=== PATIENT | female | born 1935 | race African-American/Black ===

== ENCOUNTER 2018-10-19 13:25 | Emergency (ER) | payer OTHER ==
[2018-10-19 14:39] LABS: Absolute Lymphocytes (CBC) 2.3 K/uL (0.7-4.9); Absolute Monocytes 0.7 K/uL (0.1-1.3); Absolute Neutrophil 3.7 K/uL (1.8-8.0); Eosinophils % 2.8 % (0-4.4); Hematocrit 40.7 % (36.0-45.0); MCH 27.7 pg (27.0-35.0); MCV 84.3 fL (80-100); MPV 9.5 fL (7.6-11.3); Monocytes % 9.7 % (3.3-12.3); RBC Red Blood Cell Count 4.83 M/uL (3.86-4.86)
[2018-10-19 15:00] LABS: Albumin 4.1 g/dL (3.4-5.0); Bilirubin Direct 0.2 mg/dL (0-0.2); Bilirubin Total 0.5 mg/dL (0.2-1.0); Potassium 3.8 mmol/L (3.5-5.1); Protein, Total 7.5 g/dL (6.4-8.2)
--- NOTE | 2018-10-19 15:05 | RAD REPORT ---
EXAM DESCRIPTION: CT - Chest For Pe Angio - 10/19/2018 2:49 pm CLINICAL HISTORY: Shortness of breath COMPARISON: None. TECHNIQUE: Dynamically enhanced axial 3 mm thick images of the chest were obtained during administra tion of <100> mL Isovue 370 IV contrast. Coronal and oblique reconstruction images were generated and reviewed. Exam utilizes a protocol for optimal evaluation of pulmonary arterial tree. Maximum intensity projections 3D imaging was utilized All CT scans are performed using dose optimization technique as appropriate and may include automated exposure control or mA/KV adjustment according to patient size. FINDINGS: A pulmonary embolus is not seen. A thoracic aortic aneurysm is not noted. It is tortuous/ectatic. The heart is enlarged A pleural effusion is not seen. A pericardial effusion is not seen. A lung consolidation is not present. IMPRESSION: Negative for a pulmonary embolism.
[2018-10-19 15:11] LABS: Magnesium 1.3 mg/dL (1.8-2.4)
[2018-10-19] MEDS ORDERED: Magnesium Sulfate 2gm IVPB 2 G/50 ML BAG IV ONE (15:31)
[2018-10-19 16:25] LABS: Urine Glucose NEGATIVE (NEG)
[2018-10-19 16:26] LABS: Urine Blood TRACE (NEG); Urine Protein NEGATIVE (NEG)
--- NOTE | 2018-10-19 17:02 | ER ---
Nurse's Notes [facility] Name: Beth Thrasher Age: 83 yrs Sex: Female : 1935 Arrival Date: 10/19/2018 Time: 13:31 Bed 18 Private MD: Ru Gonzalez V Diagnosis: Dyspnea, unspecified Presentation: 10/19 13:32 Presenting complaint: Patient states: "My doctor told me to come over here to get a CT aj1 scan done today. He said he saw something in my blood and that I needed to come to the ER for a CT scan". Transition of care: patient was not received from another setting of care. Onset of symptoms was October 19, 2018. Risk Assessment: Do you want to hurt yourself or someone else? Patient reports no desire to harm self or others. Initial Sepsis Screen: Does the patient meet any 2 criteria? No. Patient's initial sepsis screen is negative. Does the patient have a suspected source of infection? No. Patient's initial sepsis screen is negative. Care prior to arrival: None. 13:32 Method Of Arrival: Ambulatory [facility] 13:32 Acuity: LIEN 3 aj1 Triage Assessment: 13:37 General: Appears in no apparent distress. comfortable, Behavior is calm, cooperative, aj1 appropriate for age. Pain: Denies pain. Neuro: Level of Consciousness is awake, alert, obeys commands. Cardiovascular: Patient's skin is warm and dry. Respiratory: Airway is patent Respiratory effort is even, unlabored, Respiratory pattern is regular, symmetrical. Historical: - Allergies: 13:37 Tramadol HCl; aj1 - PMHx: 13:37 Hypertension; CHF; Rheumatoid Arthritis; aj1 - Immunization history:: Flu vaccine is not up to date. - Social history:: Smoking status: Patient/guardian denies using tobacco. - Ebola Screening: : Patient denies travel to an Ebola-affected area in the 21 days before illness onset. Screenin:49 Abuse screen: Denies threats or abuse. Nutritional screening: No deficits noted. em Tuberculosis screening: No symptoms or risk factors identified. Fall Risk None identified. Assessment: 13:58 General: Appears in no apparent distress. comfortable, Behavior is calm, cooperative. em Pain: Denies pain. Neuro: Level of Consciousness is awake, alert, obeys commands, Oriented to person, place, time, situation. Cardiovascular: Reports shortness of breath, Denies chest pain, Patient's skin is warm and dry. Respiratory: Airway is patent Respiratory effort is even, unlabored, Respiratory pattern is regular, symmetrical, Breath sounds are clear bilaterally. GI: Abdomen is flat, Abd is soft and non tender X 4 quads. : No signs and/or symptoms were reported regarding the genitourinary system. EENT: No signs and/or symptoms were reported regarding the EENT system. Derm: Skin is intact, is thin, Skin is pink, warm \\T\\ dry. Musculoskeletal: Capillary refill < 3 seconds, Range of motion: intact in all extremities. 15:11 Reassessment: critical lab- magnesium 1.3, provider notified. em 15:48 Reassessment: Patient appears in no apparent distress at this time. Patient and/or em family updated on plan of care and expected duration. Pain level reassessed. Patient is alert, oriented x 3, equal unlabored respirations, skin warm/dry/pink. pending completion of magnesium, given sandwich and snacks. 16:50 Reassessment: Patient appears in no apparent distress at this time. Patient and/or em family updated on plan of care and expected duration. Pain level reassessed. Patient is alert, oriented x 3, equal unlabored respirations, skin warm/dry/pink. Patient denies pain at this time. Patient states feeling better. Vital Signs: 13:37 BP 136 / 88; Pulse 81; Resp 18; Temp 97.0; Pulse Ox 96% on R/A; Height 5 ft. 3 in. aj1 (160.02 cm) (R); Pain 0/10; 14:00 BP 132 / 80; Pulse 80; Resp 16; Pulse Ox 99% on R/A; Pain 0/10; em 15:30 BP 138 / 82; Pulse 83; Resp 18; Pulse Ox 100% on R/A; em 16:50 BP 130 / 86; Pulse 79; Resp 16; Pulse Ox 97% on R/A; em ED Course: 13:31 Patient arrived in ED. sb2 13:31 Ru Gonzalez MD is Private Physician. sb2 13:36 Triage completed. aj1 13:37 Arm band placed on Patient placed in an exam room. aj1 13:41 Adan Chou MD is Attending Physician. gs 13:41 Leonard De Oliveira LVN is Primary Nurse. em 13:45 Urine collected: clean catch specimen, clear, sunshine colored, Amount Voided: 80mL. jp3 13:49 Patient has correct armband on for positive identification. Placed in gown. Bed in low em position. Call light in reach. Adult w/ patient. 14:00 Initial lab(s) drawn, by me, sent to lab. Inserted saline lock: 20 gauge in right em antecubital area, using aseptic technique. Blood collected. 14:49 CT Chest For PE Angio In Process Unspecified. EDMS 14:52 Urine Dipstick--Ancillary (enter results) Sent. jp3 16:43 EKG done, by ED staff, reviewed by Adan Chou MD. jp3 17:00 Ru Gonzalez MD is Referral Physician. gs 17:19 No provider procedures requiring assistance completed. IV discontinued, intact, em bleeding controlled, No redness/swelling at site. Pressure dressing applied. Administered Medications: 15:33 Drug: Magnesium Sulfate 2 grams Route: IVPB; Infused Over: 2 hrs; Site: right em antecubital; 17:18 Follow up: Response: No adverse reaction; IV Status: Completed infusion em Outcome: 17:01 Discharge ordered by . gs 17:19 Discharged to home ambulatory, with family. em 17:19 Condition: good 17:19 Discharge instructions given to patient, family, Instructed on discharge instructions, follow up and referral plans. Demonstrated understanding of instructions, follow-up care. 17:25 Patient left the ED. em Signatures: Dispatcher [employer] Gloria Huitron RN RN aj1 Leonard De Oliveira LVN LVN em Adan Chou MD MD Shawna Roper 2 Selvin Christy jp3
--- NOTE | 2018-10-19 17:02 | EDPHYS ---
Physician Documentation [facility] Name: Beth Thrasher Age: 83 yrs Sex: Female : 1935 Arrival Date: 10/19/2018 Time: 13:31 Bed 18 Private MD: Ru Gonzalez V ED Physician Adan Chou HPI: 10/19 18:39 This 83 yrs old Black Female presents to ER via Ambulatory with complaints of Abnormal gs Lab Results. 18:39 The patient has shortness of breath with light activity. Onset: The symptoms/episode gs began/occurred 1 week(s) ago. Duration: The symptoms are intermittent, with no pattern. The patient's shortness of breath is aggravated by exertion. Associated signs and symptoms: Pertinent negatives: chest pain, non-productive cough, productive cough, diaphoresis, fever. Severity of symptoms: At their worst the symptoms were moderate in the emergency department the symptoms have improved moderately. The patient has experienced similar episodes in the past, several times. The patient has been recently seen by a physician: the patient's primary care provider, WENT UP ON [facility] BETTER GOT POSITIVE D-DIMER WANT CT CHEST. Historical: - Allergies: 13:37 Tramadol HCl; aj1 - PMHx: 13:37 Hypertension; CHF; Rheumatoid Arthritis; aj1 - Immunization history:: Flu vaccine is not up to date. - Social history:: Smoking status: Patient/guardian denies using tobacco. - Ebola Screening: : Patient denies travel to an Ebola-affected area in the 21 days before illness onset. ROS: 18:39 All other systems are negative. gs Exam: 18:39 Head/Face: Normocephalic, atraumatic. Eyes: Pupils equal round and reactive to light, gs extra-ocular motions intact. Lids and lashes normal. Conjunctiva and sclera are non-icteric and not injected. Cornea within normal limits. Periorbital areas with no swelling, redness, or edema. ENT: Nares patent. No nasal discharge, no septal abnormalities noted. Tympanic membranes are normal and external auditory canals are clear. Oropharynx with no redness, swelling, or masses, exudates, or evidence of obstruction, uvula midline. Mucous membranes moist. Neck: Trachea midline, no thyromegaly or masses palpated, and no cervical lymphadenopathy. Supple, full range of motion without nuchal rigidity, or vertebral point tenderness. No Meningismus. Chest/axilla: Normal chest wall appearance and motion. Nontender with no deformity. No lesions are appreciated. Cardiovascular: Regular rate and rhythm with a normal S1 and S2. No gallops, murmurs, or rubs. Normal PMI, no JVD. No pulse deficits. Respiratory: Lungs have equal breath sounds bilaterally, clear to auscultation and percussion. No rales, rhonchi or wheezes noted. No increased work of breathing, no retractions or nasal flaring. Abdomen/GI: Soft, non-tender, with normal bowel sounds. No distension or tympany. No guarding or rebound. No evidence of tenderness throughout. Back: No spinal tenderness. No costovertebral tenderness. Full range of motion. Skin: Warm, dry with normal turgor. Normal color with no rashes, no lesions, and no evidence of cellulitis. MS/ Extremity: Pulses equal, no cyanosis. Neurovascular intact. Full, normal range of motion. Neuro: Awake and alert, GCS 15, oriented to person, place, time, and situation. Cranial nerves II-XII grossly intact. Motor strength 5/5 in all extremities. Sensory grossly intact. Cerebellar exam normal. Normal gait. 18:39 Constitutional: The patient appears alert, awake. 18:39 ECG was reviewed by the Attending Physician. Vital Signs: 13:37 BP 136 / 88; Pulse 81; Resp 18; Temp 97.0; Pulse Ox 96% on R/A; Height 5 ft. 3 in. aj1 (160.02 cm) (R); Pain 0/10; 14:00 BP 132 / 80; Pulse 80; Resp 16; Pulse Ox 99% on R/A; Pain 0/10; em 15:30 BP 138 / 82; Pulse 83; Resp 18; Pulse Ox 100% on R/A; em 16:50 BP 130 / 86; Pulse 79; Resp 16; Pulse Ox 97% on R/A; em MDM: 13:49 Patient medically screened. gs 18:39 Differential diagnosis: CHF exacerbation, Myocardial Infarction Pulmonary Embolism. gs Data reviewed: vital signs, nurses notes. Data reviewed: lab test result(s), EKG, radiologic studies. Counseling: I had a detailed discussion with the patient and/or guardian regarding: the historical points, exam findings, and any diagnostic results supporting the discharge/admit diagnosis, lab results, radiology results, the need for outpatient follow up. Response to treatment: the patient's symptoms have resolved after treatment, and as a result, I will discharge patient. 10/19 14:08 Order name: Basic Metabolic Panel; Complete Time: 16:16 gs 10/19 14:08 Order name: CBC with Diff; Complete Time: 15:06 gs 10/19 14:08 Order name: LFT's; Complete Time: 16:16 gs 10/19 14:08 Order name: Magnesium; Complete Time: 16:16 gs 10/19 14:08 Order name: NT PRO-BNP; Complete Time: 16:16 gs 10/19 14:33 Order name: Urine Dipstick--Ancillary (enter results); Complete Time: 16:57 lt1 10/19 14:08 Order name: Cardiac monitoring; Complete Time: 14:53 gs 10/19 14:08 Order name: IV Saline Lock; Complete Time: 14:53 gs 10/19 14:08 Order name: Labs collected and sent; Complete Time: 14:53 gs 10/19 14:08 Order name: CT Chest For PE Angio; Complete Time: 15:06 gs 10/19 16:17 Order name: EKG; Complete Time: 16:17 gs 10/19 16:17 Order name: Troponin (emerg Dept Use Only); Complete Time: 16:57 gs 10/19 14:08 Order name: O2 Per Protocol; Complete Time: 14:53 gs 10/19 14:08 Order name: O2 Sat Monitoring; Complete Time: 14:53 gs 10/19 16:17 Order name: EKG - Nurse/Tech; Complete Time: 16:43 gs EC:39 Rate is 76 beats/min. Rhythm is regular. NV interval is normal. QRS interval is gs prolonged. T waves are Inverted. Clinical impression: Abnormal EKG without significant change. Interpreted by me. Administered Medications: 15:33 Drug: Magnesium Sulfate 2 grams Route: IVPB; Infused Over: 2 hrs; Site: right em antecubital; 17:18 Follow up: Response: No adverse reaction; IV Status: Completed infusion em Disposition: 10/19/18 17:01 Discharged to Home. Impression: Dyspnea, unspecified. - Condition is Stable. - Discharge Instructions: Shortness of Breath, [id number]. - Medication Reconciliation Form, Thank You Letter, Antibiotic Education, Prescription Opioid Use form. - Follow up: Ru Gonzalez MD; When: 2 - 3 days; Reason: Re-evaluation by your physician. Signatures: Dispatcher [employer] [facility] Gloria Valdez, RN RN aj1 Leonard De Oliveira, SERVICE UNIT OPERATOR [employer] SERVICE UNIT OPERATOR [employer] em Adan Chou MD MD gs Corrections: (The following items were deleted from the chart) 15:03 14:09 Chest Single View+RAD.RAD.BRZ ordered. [facility] 17:25 17:01 10/19/2018 17:01 Discharged to Home. Impression: Dyspnea, unspecified. Condition em is Stable. Forms are Medication Reconciliation Form, Thank You Letter, Antibiotic Education, Prescription Opioid Use. Follow up: Ru Gonzalez; When: 2 - 3 days; Reason: Re-evaluation by your physician. gs
[2018-10-19 17:48] VITALS: TEMP 97
[2018-10-19 17:58] VITALS: BP 130/86; O2SAT 97
--- NOTE | 2018-10-20 06:07 | EKG ---
Test Date: 2018-10-19 Test Time: 16:38:18 [employer] Curtain Machine Tender: MIRIAM MEASUREMENT RESULTS: Intervals: Rate: 76 WA: 174 QRSD: 136 QT: 424 QTc: 477 Strong: P: 6 WA: 174 QRS: -44 T: 132 INTERPRETIVE STATEMENTS: Normal sinus rhythm Possible Left atrial enlargement Left axis deviation Left bundle branch block Abnormal ECG Compared to ECG 10/21/2013 14:06:39 Left bundle-branch block now present Electronically Signed On 10-20-18 06:07:24 WOOD STOCK BLANK HANDLER by Siddhartha Crabtree
== END 2018-10-19 17:25 | disposition home or self-care (01) ==
LOC: ER 13:25
DX: R06.00 Dyspnea, unspecified (principal); I10 Essential (primary) hypertension; I50.9 Heart failure, unspecified; Z88.6 Allergy status to analgesic agent
CPT/HCPCS: 36415; 71275; 80048; 80076; 81003; 83735; 83880; 84484; 85025; 93005; 96365; 96366; 99284; J3475; Q9967

== ENCOUNTER 2019-04-20 08:57 | Emergency (ER) | payer OTHER ==
--- NOTE | 2019-04-20 10:14 | RAD REPORT ---
EXAM DESCRIPTION: CT - C Spine Wo Con - 04/20/2019 9:53 am CLINICAL HISTORY: Radiculopathy/neck pain COMPARISON: None. TECHNIQUE: Computed axial tomography of the cervical spine were obtained with sagittal and coronal r econstruction images generated and reviewed. All CT scans are performed using dose optimization technique as appropriate and may include automated exposure control or mA/KV adjustment according to patient size. FINDINGS: Slight anterior subluxation C3 on C4. Mild anterior subluxation of C6 on C7 A cervical fracture is not seen. Moderate spondylosis involves mid and distal cervical spine. . Possible soft tissue left piriform sinus Thyroid gland appears mildly enlarged IMPRESSION: A cervical fracture is not seen. Slight anterior subluxation C3 on C4. Mild anterior subluxation of C6 on C7 . Moderate spondylosis mid and distal cervical spine If the patient continues have symptoms to suggest spinal cord/spinal canal pathology then MRI would b e recommended. Possible soft tissue left piriform sinus. Often this is secondary to incomplete distention. As a mass can have this appearance nonemergent CT neck with IV contrast recommended
--- NOTE | 2019-04-20 10:36 | ER ---
Nurse's Notes [facility] Name: Beth Thrasher Age: 83 yrs Sex: Female : 1935 Arrival Date: 04/20/2019 Time: 08:58 Bed 19 Private MD: Diagnosis: Cervical disc disorder with radiculopathy Presentation: 04/20 08:58 Presenting complaint: EMS states: SPONTANEOUS NECK AND BACK PAIN WITHOUT TRAUMA. bp Transition of care: patient was not received from another setting of care. Onset of symptoms is unknown. Risk Assessment: Do you want to hurt yourself or someone else? Patient reports no desire to harm self or others. Initial Sepsis Screen: Does the patient meet any 2 criteria? No. Patient's initial sepsis screen is negative. Does the patient have a suspected source of infection? No. Patient's initial sepsis screen is negative. Care prior to arrival: None. 08:58 Method Of Arrival: EMS: [facility] bp 08:58 Acuity: LIEN 4 bp Triage Assessment: 09:05 General: Appears in no apparent distress. uncomfortable, Behavior is cooperative, bp appropriate for age, anxious. Pain: Complains of pain in back of neck and posterior chest. EENT: No deficits noted. Neuro: No deficits noted. Cardiovascular: Rhythm is sinus rhythm. Respiratory: Airway is patent Respiratory effort is even, unlabored, Respiratory pattern is regular, symmetrical. GI: No signs and/or symptoms were reported involving the gastrointestinal system. : No signs and/or symptoms were reported regarding the genitourinary system. Derm: No deficits noted. Musculoskeletal: Circulation, motion, and sensation intact. Swelling absent. Historical: - Allergies: 09:05 Tramadol HCl; bp - Home Meds: 09:05 losartan 50 mg oral tab 1 tab once daily [Active]; furosemide 40 mg Oral tab 1 tab 2 bp times per day [Active]; Nifedipine ER Oral 60 mg daily [Active]; gabapentin 100 mg oral cap 1 caps 3 times per day [Active]; potassium chloride 20 mEq Oral TbTQ 1 tab 2 times per day [Active]; - PMHx: 09:05 CHF; Rheumatoid Arthritis; Hypertension; Chronic pain; bp - Immunization history:: Adult Immunizations up to date. - Social history:: Smoking status: Patient/guardian denies using tobacco. - Ebola Screening: : No symptoms or risks identified at this time. Screenin:08 Abuse screen: Denies threats or abuse. Denies injuries from another. Nutritional bp screening: No deficits noted. Tuberculosis screening: No symptoms or risk factors identified. Fall Risk None identified. Assessment: 09:00 General: SEE TRIAGE NOTE. bp 09:44 Reassessment: PT TO CT WITH MOLD CONSTRUCTION SUPERVISOR. bp 10:21 Reassessment: PT RETURNED FROM CT, ALL CURRENT ORDERS COMPLETE. bp 11:06 Reassessment: PER , D/C ON HOLD FOR ANALGESIA. bp 12:25 Reassessment: PT D/C HOME VIA W/C WITH FAMILY, DX WITH CERVICAL RADICULOPATHY. bp Vital Signs: 09:00 BP 149 / 74; Pulse 96; Resp 18; Temp 99.6(TE); Pulse Ox 98% on R/A; Pain 10/10; mh5 10:21 BP 167 / 80; Pulse 93; Resp 18; Pulse Ox 94% ; bp 11:30 BP 168 / 74; Pulse 91; Resp 20; Temp 99.0(TE); Pulse Ox 95% ; mh5 12:24 BP 155 / 64; Pulse 94; Resp 16; Temp 98.9; Pulse Ox 94% ; bp ED Course: 08:58 Patient arrived in ED. bp 08:59 Triage completed. bp 09:04 Patient has correct armband on for positive identification. Bed in low position. Call mh5 light in reach. Side rails up X2. Adult w/ patient. Warm blanket given. Pillow given. Pulse ox on. NIBP on. 09:08 Adan Chou MD is Attending Physician. gs 09:33 Yung Allen, TITO is Primary Nurse. bp 09:47 EKG done, by ED staff, reviewed by Adan Chou MD. mh5 09:50 CT completed. Patient tolerated procedure well. Patient moved back from CT. bq 09:53 CT C Spine In Process Unspecified. EDMS 12:25 No provider procedures requiring assistance completed. Patient did not have IV access bp during this emergency room visit. 12:26 Arm band placed on. bp Administered Medications: 10:45 Drug: [place] 5 mg-325 mg 1 tabs Route: PO; bp 10:58 Follow up: Response: No adverse reaction bp Outcome: 10:36 Discharge ordered by . gs 12:11 Discharge ordered by . gs 12:25 Discharged to home via wheelchair, with family. bp 12:25 Condition: stable 12:25 Discharge instructions given to patient, family, Instructed on discharge instructions, follow up and referral plans. medication usage, Demonstrated understanding of instructions, follow-up care, medications. 12:36 Patient left the ED. bp Signatures: Dispatcher [employer] EDDavina Colin Maria 5 Adan Chou MD MD gs Peltier, Brian, RN RN bp
--- NOTE | 2019-04-20 10:36 | EDPHYS ---
Physician Documentation [facility] Name: Beth Thrasher Age: 83 yrs Sex: Female : 1935 Arrival Date: 04/20/2019 Time: 08:58 Bed 19 Private MD: ED Physician Adan Chou HPI: 04/20 10:31 This 83 yrs old Black Female presents to ER via EMS with complaints of Back Pain. gs 10:31 The patient or guardian complains of pain. The symptoms are located at the C5 and C6, gs on the right trapezius. Onset: The symptoms/episode began/occurred 4 day(s) ago. Associated signs and symptoms: Pertinent negatives: headache, bladder incontinence, bowel incontinence, numbness. The pain does not radiate. Modifying factors: the symptoms are aggravated by movement. Severity of symptoms: At their worst the symptoms were moderate, in the emergency department the symptoms are unchanged. The patient has experienced similar episodes in the past, a few times. Historical: - Allergies: 09:05 Tramadol HCl; bp - Home Meds: 09:05 losartan 50 mg oral tab 1 tab once daily [Active]; furosemide 40 mg Oral tab 1 tab 2 bp times per day [Active]; Nifedipine ER Oral 60 mg daily [Active]; gabapentin 100 mg oral cap 1 caps 3 times per day [Active]; potassium chloride 20 mEq Oral TbTQ 1 tab 2 times per day [Active]; - PMHx: 09:05 CHF; Rheumatoid Arthritis; Hypertension; Chronic pain; bp - Immunization history:: Adult Immunizations up to date. - Social history:: Smoking status: Patient/guardian denies using tobacco. - Ebola Screening: : No symptoms or risks identified at this time. ROS: 10:31 All other systems are negative. gs Exam: 10:31 Head/Face: Normocephalic, atraumatic. Eyes: Pupils equal round and reactive to light, gs extra-ocular motions intact. Lids and lashes normal. Conjunctiva and sclera are non-icteric and not injected. Cornea within normal limits. Periorbital areas with no swelling, redness, or edema. ENT: Nares patent. No nasal discharge, no septal abnormalities noted. Tympanic membranes are normal and external auditory canals are clear. Oropharynx with no redness, swelling, or masses, exudates, or evidence of obstruction, uvula midline. Mucous membranes moist. Chest/axilla: Normal chest wall appearance and motion. Nontender with no deformity. No lesions are appreciated. Cardiovascular: Regular rate and rhythm with a normal S1 and S2. No gallops, murmurs, or rubs. Normal PMI, no JVD. No pulse deficits. Respiratory: Lungs have equal breath sounds bilaterally, clear to auscultation and percussion. No rales, rhonchi or wheezes noted. No increased work of breathing, no retractions or nasal flaring. Abdomen/GI: Soft, non-tender, with normal bowel sounds. No distension or tympany. No guarding or rebound. No evidence of tenderness throughout. Back: No spinal tenderness. No costovertebral tenderness. Full range of motion. 10:31 Skin: Warm, dry with normal turgor. Normal color with no rashes, no lesions, and no evidence of cellulitis. MS/ Extremity: Pulses equal, no cyanosis. Neurovascular intact. Full, normal range of motion. Neuro: Awake and alert, GCS 15, oriented to person, place, time, and situation. Cranial nerves II-XII grossly intact. Motor strength 5/5 in all extremities. Sensory grossly intact. Cerebellar exam normal. Normal gait. 10:31 Constitutional: The patient appears alert, awake. 10:31 Neck: C-spine: vertebral tenderness, that is mild, appreciated at C4 and C5, reproduces pain. 10:31 ECG was reviewed by the Attending Physician. Vital Signs: 09:00 BP 149 / 74; Pulse 96; Resp 18; Temp 99.6(TE); Pulse Ox 98% on R/A; Pain 10/10; mh5 10:21 BP 167 / 80; Pulse 93; Resp 18; Pulse Ox 94% ; bp 11:30 BP 168 / 74; Pulse 91; Resp 20; Temp 99.0(TE); Pulse Ox 95% ; mh5 12:24 BP 155 / 64; Pulse 94; Resp 16; Temp 98.9; Pulse Ox 94% ; bp MDM: 09:18 Patient medically screened. gs 10:31 Differential diagnosis: Cervical Discogenic Pain cervical strain, fracture. Data gs reviewed: vital signs, nurses notes, old medical records, lab test result(s), EKG. Response to treatment: the patient's symptoms have markedly improved after treatment, and as a result, I will discharge patient. 10:40 Counseling: I had a detailed discussion with the patient and/or guardian regarding: the historical points, exam findings, and any diagnostic results supporting the discharge/admit diagnosis, radiology results, the need for outpatient follow up. ED course: pain on right no symptoms of pyriformis sinus. 04/20 09:28 Order name: CT C Spine; Complete Time: 10:28 04/20 09:28 Order name: EKG - Nurse/Tech; Complete Time: :34 EC:31 Rate is 87 beats/min. Rhythm is regular. AR interval is normal. QRS interval is gs prolonged. T waves are Normal. No ST changes noted. Clinical impression: Abnormal EKG without significant change. Interpreted by me. Administered Medications: 10:45 Drug: [place] 5 mg-325 mg 1 tabs Route: PO; bp 10:58 Follow up: Response: No adverse reaction bp Disposition: 04/20/19 12:11 Discharged to Home. Impression: Cervical disc disorder with radiculopathy. - Condition is Stable. - Discharge Instructions: Cervical Radiculopathy, [id number]. - Prescriptions for Tylenol- Codeine #3 300-30 mg Oral Tablet - take 1 tablet by ORAL route every 12 hours As needed; 10 tablet. Valium 2 mg Oral Tablet - take 1 tablet by ORAL route every 12 hours As needed; 10 tablet. - Medication Reconciliation Form, Thank You Letter, Antibiotic Education, Prescription Opioid Use form. - Follow up: Private Physician; When: 2 - 3 days; Reason: Re-evaluation by your physician. Signatures: Dispatcher [employer] [facility] Adan Chou MD MD Yung Allen RN RN bp Corrections: (The following items were deleted from the chart) 11:24 10:36 04/20/2019 10:36 Discharged to Home. Impression: Sprain of ligaments of cervical gs spine. Condition is Stable. Forms are Medication Reconciliation Form, Thank You Letter, Antibiotic Education, Prescription Opioid Use. Follow up: Private Physician; When: 2 - 3 days; Reason: Re-evaluation by your physician. 12:36 12:11 04/20/2019 12:11 Discharged to Home. Impression: Cervical disc disorder with bp radiculopathy. Condition is Stable. Prescriptions for Tylenol-Codeine #3 300-30 mg Oral Tablet - take 1 tablet by ORAL route 2 times per day As needed; 10 tablet. and Forms are Medication Reconciliation Form, Thank You Letter, Antibiotic Education, Prescription Opioid Use. Follow up: Private Physician; When: 2 - 3 days; Reason: Re-evaluation by your physician. gs
[2019-04-20] MEDS ORDERED: HYDROCODONE/APAP 5/325 MG TAB ONE (11:07)
[2019-04-20 13:09] VITALS: BP 155/64; TEMP 98.9; O2SAT 94
--- NOTE | 2019-04-21 12:38 | EKG ---
Test Date: 2019-04-20 Test Time: 09:43:14 Spring Coverer: DA MEASUREMENT RESULTS: Intervals: Rate: 87 NE: 162 QRSD: 114 QT: 374 QTc: 450 [place]: P: 22 NE: 162 QRS: -38 T: 133 INTERPRETIVE STATEMENTS: Sinus rhythm with premature atrial complexes with aberrant conduction Left axis deviation Intraventricular conduction delay Left ventricular hypertrophy with repolarization abnormality Abnormal ECG Compared to ECG 10/19/2018 16:38:18 Atrial premature complex(es) now present Aberrant conduction of supraventricular beat(s) now present Left ventricular hypertrophy now present Electronically Signed On 04-21-19 12:37:35 CDT by Siddhartha Crabtree
== END 2019-04-20 12:36 | disposition home or self-care (01) ==
LOC: ER 08:57
DX: M50.121 Cervical disc disorder at C4-C5 level with radiculopathy (principal); I10 Essential (primary) hypertension; I50.9 Heart failure, unspecified; Z88.5 Allergy status to narcotic agent
CPT/HCPCS: 72125; 93005; 99285

== ENCOUNTER 2024-06-07 15:37 | Emergency (ER) | payer OTHER ==
[2024-06-07 16:28] LABS: Absolute Eosinophils 0.1 K/uL (0-0.5); Absolute Lymphocytes (CBC) 1.8 K/uL (0.7-4.9); Absolute Monocytes 0.6 K/uL (0.1-1.3); Absolute Neutrophil 3.4 K/uL (1.8-8.0); Basophils % 0.7 % (0-1.3); Eosinophils % 1.9 % (0-4.4); Hematocrit 35.9 % (36.0-45.0); Hemoglobin 11.7 g/dL (12.0-15.0); Lymphocytes % 30.3 % (15.3-44.8); MCH 28.2 pg (27.0-35.0); MCHC 32.5 g/dL (32.0-36.0); MCV 86.7 fL (80-100); MPV 8.9 fL (7.6-11.3); Monocytes % 10.3 % (3.3-12.3); Neutrophils % 56.8 % (41.7-73.7); Nucleated Red Blood Cells % 0.1 % (0-0); Platelets 158 thou/uL (152-406); RBC Red Blood Cell Count 4.14 M/uL (3.86-4.86); Red Cell Distribution Width 14.6 % (12.1-15.2)
[2024-06-07 16:51] LABS: PT Prothrombin Time 11.5 SECONDS (9.4-12.5); PTT, Activated Partial Thromb 31.7 SECONDS (24.3-36.9); Protime INR 1.03
[2024-06-07 16:54] LABS: Anion Gap 7.8 mEq/L (5.0-15.0); Magnesium 2.6 mg/dL (1.6-2.4); Potassium 4.8 mEq/L (3.5-5.1); Troponin High Sensitivity 17.7 pg/mL (<58.9)
--- NOTE | 2024-06-07 17:23 | RAD REPORT ---
EXAM DESCRIPTION: US - Extrem Venous W Compress Rosas - 06/07/2024 4:48 pm CLINICAL HISTORY: LE swelling, pos d dimer Bilateral leg edema and swelling. COMPARISON: <Comparisons> TECHNIQUE: Real-time sonographic interrogation of the left and right lower extremity deep venous sys tems was performed. FINDINGS: Normal compressibility, flow augmentation, phasic flow and spontaneous flow is identified in both the left and right lower extremity deep venous systems. IMPRESSION: No sonographic evidence of left or right lower extremity deep venous thrombosis.
--- NOTE | 2024-06-07 18:09 | RAD REPORT ---
EXAM DESCRIPTION: CT - Chest For Pe Angio - 06/07/2024 5:50 pm CLINICAL HISTORY: Chest pain. DYSPNEA COMPARISON: <Comparisons> TECHNIQUE: CT angiogram of the pulmonary arteries was performed with MIP. All CT scans are performed using dose optimization technique as appropriate and may include automated exposure control or mA/KV adjustment according to patient size. FINDINGS: No evidence of pulmonary thromboembolism. No acute aortic finding demonstrated. Significant cardiomegaly. There is mild atelectasis in both lung bases, greater on the right. Early right base infiltrate not e xcluded. No significant pericardial or pleural fluid. No concerning bony finding. IMPRESSION: No evidence of pulmonary thromboembolism. Atelectasis versus early infiltrate right base posteriorly.
--- NOTE | 2024-06-07 18:31 | ER ---
Nurse's Notes [facility] Name: Beth Thrasher Age: 88 yrs Sex: Female : 1935 Arrival Date: 06/07/2024 Time: 15:37 Bed 16 Private MD: Diagnosis: Cough;Elevated D-dimer Presentation: 06/07 15:46 Chief complaint: Patient states: Sent over by Dr Gonzalez, office had called us to advised [facility] us of situation. 15:46 Coronavirus screen: Vaccine status: Patient reports being unvaccinated. Ebola Screen: nj Patient denies travel to an Ebola-affected area in the 21 days before illness onset. Initial Sepsis Screen: Does the patient meet any 2 criteria? No. Patient's initial sepsis screen is negative. Does the patient have a suspected source of infection? No. Patient's initial sepsis screen is negative. Risk Assessment: Do you want to hurt yourself or someone else? Patient reports no desire to harm self or others. Onset of symptoms was June 07, 2024. 15:46 Method Of Arrival: Ambulatory [facility] 15:46 Acuity: LIEN 3 [facility] Historical: - Allergies: 15:53 Tramadol HCl; nj1 - PMHx: 15:53 CHF; Chronic pain; Hypertension; Rheumatoid Arthritis; nj1 - Immunization history:: Client reports having NOT received the Covid vaccine. - Infectious Disease History:: Denies. - Social history:: Smoking status: Patient denies any tobacco usage or history of. - Family history:: not pertinent. Screenin:46 [facility] ED Fall Risk Assessment (Adult) History of falling in the last 3 months, rs5 including since admission No falls in past 3 months (0 pts) Confusion or Disorientation No (0 pts) Intoxicated or Sedated No (0 pts) Impaired Gait No (0 pts) Mobility Assist Device Used No (0 pt) Altered Elimination No (0 pt) Score/Fall Risk Level 0 - 2 = Low Risk Oriented to surroundings, Maintained a safe environment. Abuse screen: Denies threats or abuse. Nutritional screening: No deficits noted. Tuberculosis screening: No symptoms or risk factors identified. Assessment: 15:46 General: Appears in no apparent distress. comfortable, Behavior is calm, cooperative. rs5 Pain: Denies pain. Neuro: Level of Consciousness is awake, alert, obeys commands, Oriented to person, place, time, situation. Cardiovascular: Patient's skin is warm and dry. Respiratory: Airway is patent Respiratory effort is even, unlabored, Respiratory pattern is regular, symmetrical. GI: Abdomen is round non-distended, Abd is soft and non tender X 4 quads. : No signs and/or symptoms were reported regarding the genitourinary system. EENT: No signs and/or symptoms were reported regarding the EENT system. Derm: Skin is intact, Skin is pink, warm \T\ dry. Musculoskeletal: Range of motion: intact in all extremities. 16:58 Reassessment: Patient and/or family updated on plan of care and expected duration. Pain rs5 level reassessed. Patient is alert, oriented x 3, equal unlabored respirations, skin warm/dry/pink. 18:01 Reassessment: Patient and/or family updated on plan of care and expected duration. Pain rs5 level reassessed. Patient is alert, oriented x 3, equal unlabored respirations, skin warm/dry/pink. 18:45 Reassessment: No changes from previously documented assessment. rs5 Vital Signs: 15:46 BP 154 / 58; Pulse 66; Resp 18; Temp 98.6(O); Pulse Ox 93% on R/A; Weight 81.65 kg; nj1 Height 5 ft. 2 in. ; 16:59 BP 145 / 62; Pulse 70; Resp 17; Pulse Ox 95% on R/A; rs5 18:45 BP 130 / 64; Pulse 73; Resp 17; Pulse Ox 99% on R/A; rs5 15:46 Body Mass Index 32.92 (81.65 kg, 157.48 cm) [facility] ED Course: 15:41 Patient arrived in ED. im 15:45 Song Simmons MD is Attending Physician. rt 15:46 Patient has correct armband on for positive identification. Placed in gown. Bed in low rs5 position. Call light in reach. Side rails up X2. 15:46 No provider procedures requiring assistance completed. rs5 15:53 Triage completed. nj1 15:54 Arm band placed on. nj1 15:58 Khai Lee, TITO is Primary Nurse. rs5 16:00 Inserted saline lock: 20 gauge in left antecubital area, using aseptic technique. Blood rs5 collected. Flushed with 10 mL NS. 16:50 Extrem Venous W Compression Rosas US In Process Unspecified. EDMS 17:52 CT Chest For PE Angio In Process Unspecified. EDMS 18:29 Ru Gonzalez MD is Referral Physician. rt 18:46 IV discontinued, intact, bleeding controlled, No redness/swelling at site. Pressure rs5 dressing applied. Administered Medications: No medications were administered Medication: 16:59 VIS not applicable for this client. rs5 Outcome: 18:30 Discharge ordered by . rt 18:46 Discharged to home ambulatory, rs5 18:46 Condition: stable 18:46 Discharge instructions given to patient, family, Instructed on discharge instructions, follow up and referral plans. Demonstrated understanding of instructions, follow-up care, 18:46 Patient left the ED. rs5 Signatures: Dispatcher [employer] EDPA Song Simmons MD MD rt Khai Lee RN RN rs5 Eun Sawyer RN RN nj1 Ness Vallejo
--- NOTE | 2024-06-07 18:31 | EDPHYS ---
Physician Documentation [facility] Name: Beth Thrasher Age: 88 yrs Sex: Female : 1935 Arrival Date: 06/07/2024 Time: 15:37 Bed 16 Private MD: ED Physician Song Simmons HPI: 06/07 20:11 This 88 yrs old Black Female presents to ER via Ambulatory with complaints of Abnormal rt Lab Results. 20:11 Patient was sent from her PCP for elevated D-dimer, reportedly to about thousand. rt Patient is had a cough, mild shortness of breath for about 1 week. Denies chest pain, the acute complaint, symptoms are mild in severity, no other aggravating or alleviating factors.. Historical: - Allergies: 15:53 Tramadol HCl; nj1 - PMHx: 15:53 CHF; Chronic pain; Hypertension; Rheumatoid Arthritis; nj1 - Immunization history:: Client reports having NOT received the Covid vaccine. - Infectious Disease History:: Denies. - Social history:: Smoking status: Patient denies any tobacco usage or history of. - Family history:: not pertinent. ROS: 20:11 Constitutional: Negative for fever, chills, and weight loss, Cardiovascular: Negative rt for chest pain, palpitations, and edema, Abdomen/GI: Negative for abdominal pain, nausea, vomiting, diarrhea, and constipation, MS/Extremity: Negative for injury and deformity, Skin: Negative for injury, rash, and discoloration, Neuro: Negative for headache, weakness, numbness, tingling, and seizure, 20:11 Respiratory: Positive for cough, shortness of breath, Exam: 20:11 Constitutional: This is a well developed, well nourished patient who is awake, alert, rt and in no acute distress. Head/Face: Normocephalic, atraumatic. Chest/axilla: Normal chest wall appearance and motion. Nontender with no deformity. No lesions are appreciated. Cardiovascular: Regular rate and rhythm with a normal S1 and S2. No gallops, murmurs, or rubs. Normal PMI, no JVD. No pulse deficits. Respiratory: Lungs have equal breath sounds bilaterally, clear to auscultation and percussion. No rales, rhonchi or wheezes noted. No increased work of breathing, no retractions or nasal flaring. Abdomen/GI: Soft, non-tender, with normal bowel sounds. No distension or tympany. No guarding or rebound. No evidence of tenderness throughout. Skin: Warm, dry with normal turgor. Normal color with no rashes, no lesions, and no evidence of cellulitis. MS/ Extremity: Pulses equal, no cyanosis. Neurovascular intact. Full, normal range of motion. Neuro: Awake and alert, GCS 15, oriented to person, place, time, and situation. Cranial nerves II-XII grossly intact. Motor strength 5/5 in all extremities. Sensory grossly intact. Cerebellar exam normal. Normal gait. 20:11 ECG was reviewed by the Attending Physician. Vital Signs: 15:46 BP 154 / 58; Pulse 66; Resp 18; Temp 98.6(O); Pulse Ox 93% on R/A; Weight 81.65 kg; nj1 Height 5 ft. 2 in. ; 16:59 BP 145 / 62; Pulse 70; Resp 17; Pulse Ox 95% on R/A; rs5 18:45 BP 130 / 64; Pulse 73; Resp 17; Pulse Ox 99% on R/A; rs5 15:46 Body Mass Index 32.92 (81.65 kg, 157.48 cm) nj1 MDM: 15:47 Patient medically screened. rt 20:11 Differential Diagnosis DVT, PE, viral syndrome, pneumonia. Data reviewed: vital signs, rt nurses notes, lab test result(s), EKG, radiologic studies. Management of patient was discussed with the following: Primary Care Provider: Discussed with PCP, will follow-up patient in the clinic. Independent interpretation of the following test(s) in the Emergency Department CT Scan: My interpretation is No pneumothorax and on interpretation of CT scan images. Care significantly affected by the following chronic conditions: Congestive Heart Failure. Counseling: I had a detailed discussion with the patient and/or guardian regarding the historical points, exam findings, and any diagnostic results supporting the discharge/admit diagnosis, lab results, radiology results, the need for outpatient follow up, to return to the emergency department if symptoms worsen or persist or if there are any questions or concerns that arise at home. Response to treatment: the patient's symptoms have mildly improved after treatment. 06/07 15:57 Order name: Basic Metabolic Panel; Complete Time: 17:00 rt 06/07 15:57 Order name: CBC with Diff; Complete Time: 17:00 rt 08 15:57 Order name: Magnesium; Complete Time: 17:00 rt 06/07 15:57 Order name: NT PRO-BNP; Complete Time: 17:00 rt 06/07 15:57 Order name: Troponin HS; Complete Time: 17:00 rt 06/07 15:57 Order name: PT-INR; Complete Time: 17:00 rt 06/07 15:57 Order name: Ptt, Activated; Complete Time: 17:00 rt 06/07 15:57 Order name: CT Chest For PE Angio; Complete Time: 18:10 rt 06/07 15:57 Order name: Extrem Venous W Compression Rosas US; Complete Time: 17:24 rt 06/07 15:57 Order name: Cardiac monitoring; Complete Time: 16:57 rt 06/07 15:57 Order name: EKG - Nurse/Tech; Complete Time: 16:57 rt 06/07 15:57 Order name: IV Saline Lock; Complete Time: 16:57 rt 06/07 15:57 Order name: Labs collected and sent; Complete Time: 16:57 rt 06/07 15:57 Order name: O2 Per Protocol; Complete Time: 16:57 rt 06/07 15:57 Order name: O2 Sat Monitoring; Complete Time: 16:57 rt EC:11 Rate is 62 beats/min. Rhythm is regular, Normal Sinus Rhythm with Left bundle branch rt block. Left axis deviation noted. ID interval is normal. QT interval is normal. No Q waves. No ST changes noted. Interpreted by me. Administered Medications: No medications were administered Disposition Summary: 06/07/24 18:30 Discharge Ordered Notes: Location: Home rt Problem: new rt Symptoms: have improved rt Condition: Stable rt Diagnosis - Cough rt - Elevated D-dimer rt Followup: rt - With: Ru Gonzalez MD - When: 2 - 3 days - Reason: Discharge Instructions: - Discharge Summary Sheet rt - Cough, Adult rt - D-Dimer Test rt Forms: - Medication Reconciliation Form rt - Antibiotic Education rt - Prescription Opioid Use rt - Patient Portal Instructions rt - Leadership Thank You Letter rt Signatures: Dispatcher [employer] Song Stewart MD MD rt Eun Sawyer RN RN nj1 Corrections: (The following items were deleted from the chart) 15:57 15:57 Chest For PE Angio+CT.RAD.BRZ ordered. EDMS EDMS 15: 15:57 Extrem Venous W Compression Rosas+US.RAD.BRZ ordered. EDMS EDMS 15:57 15:57 PROTIME (+INR)+COAG.LAB.BRZ ordered. EDMS EDMS 15:57 15:57 PTT, ACTIVATED+COAG.LAB.BRZ ordered. EDMS EDMS
[2024-06-07 20:45] VITALS: TEMP 98.6
[2024-06-07 21:01] VITALS: BP 130/64; O2SAT 99
--- NOTE | 2024-06-09 17:03 | EKG ---
Test Date: 2024-06-07 Test Time: 16:14:57 Patient Financial Coordinator: CAROL MEASUREMENT RESULTS: Intervals: Rate: 62 VT: 200 QRSD: 142 QT: 432 QTc: 438 [place]: P: 26 VT: 200 QRS: -47 T: 117 INTERPRETIVE STATEMENTS: Normal sinus rhythm Left bundle branch block Abnormal ECG Compared to ECG 04/20/2019 09:43:14 Left bundle-branch block now present Atrial premature complex(es) no longer present Aberrant conduction of supraventricular beat(s) no longer present Left-axis deviation no longer present Intraventricular conduction delay no longer present Left ventricular hypertrophy no longer present Early repolarization no longer present Electronically Signed On 06-09-24 16:58:02 CDT by Naveen Ramirez
== END 2024-06-07 18:46 | disposition home or self-care (01) ==
LOC: ER 15:37
DX: R05.9 Cough, unspecified (principal); R79.89 Other specified abnormal findings of blood chemistry
CPT/HCPCS: 85025; 80048; 36415; 83735; 85610; 85730; 84484; 83880; 71275; 93970; 99284; Q9967; 93005

== ENCOUNTER 2025-03-21 17:18 | Emergency (ER) | payer OTHER ==
[2025-03-21 18:28] LABS: Absolute Eosinophils 0.1 K/uL (0-0.5); Absolute Lymphocytes (CBC) 1.9 K/uL (0.7-4.9); Absolute Monocytes 0.6 K/uL (0.1-1.3); Absolute Neutrophil 3.2 K/uL (1.8-8.0); Basophils % 0.8 % (0-1.3); Eosinophils % 2.1 % (0-4.4); Hematocrit 35.6 % (36.0-45.0); Hemoglobin 11.8 g/dL (12.0-15.0); MCH 28.3 pg (27.0-35.0); MCHC 33.1 g/dL (32.0-36.0); MCV 85.5 fL (80-100); Monocytes % 10.4 % (3.3-12.3); Neutrophils % 53.7 % (41.7-73.7); Platelets 168 thou/uL (152-406); RBC Red Blood Cell Count 4.16 M/uL (3.86-4.86); Red Cell Distribution Width 15.1 % (12.1-15.2)
[2025-03-21 18:32] LABS: PT Prothrombin Time 11.1 SECONDS (10-13.0); Protime INR 0.97
[2025-03-21 18:43] LABS: AST/SGOT 12 U/L (15-37); Albumin/Globulin Ratio 1.2 (1.1-1.8); Alkaline Phosphatase 121 U/L (45-117); Anion Gap 5.7 mEq/L (5.0-15.0); BUN Blood Urea Nitrogen 20 mg/dL (7-18); Bicarbonate 34 mEq/L (21-32); Bilirubin Total 0.3 mg/dL (0.2-1.0); Globulin 3.3 g/dL (2.3-3.5); Glomerular Filtration Rate 45 ml/min (=/>90); Glucose Level 91 mg/dL (74-106); Magnesium 1.8 mg/dL (1.6-2.4); Potassium 4.7 mEq/L (3.5-5.1); Protein, Total 7.3 g/dL (6.4-8.2); Sodium Level 138 mEq/L (136-145)
[2025-03-21 18:46] LABS: ALT/SGPT < 14 U/L (13-56); Bilirubin Direct < 0.2 mg/dL (0-0.2); Bilirubin Indirect, Calculated 0.1 mg/dL (0.2-0.8)
--- NOTE | 2025-03-21 19:36 | ER ---
Nurse's Notes [facility] Name: Beth Thrasher Age: 89 yrs Sex: Female : 1935 Arrival Date: 03/21/2025 Time: 17:18 Bed 13 Private MD: Diagnosis: Encounter for screening, unspecified Presentation: 03/21 17:25 Chief complaint: Patient states: Dr. Gonzalez sent her in for increasing potassium levels ll1 this week. Coronavirus screen: Client denies travel out of the [place] in the last 14 days. At this time, the client does not indicate any symptoms associated with coronavirus-19. Ebola Screen: Patient denies travel to an Ebola-affected area in the 21 days before illness onset. Initial Sepsis Screen: Does the patient meet any 2 criteria? No. Patient's initial sepsis screen is negative. Does the patient have a suspected source of infection? No. Patient's initial sepsis screen is negative. Risk Assessment: Do you want to hurt yourself or someone else? Patient reports no desire to harm self or others. Onset of symptoms was March 15, 2025. 17:25 Method Of Arrival: Ambulatory ll1 17:25 Acuity: LIEN 3 ll1 Historical: - Allergies: 17:21 Tramadol HCl; ll1 - PMHx: 17:21 CHF; Chronic pain; Hypertension; Rheumatoid Arthritis; ll1 - Immunization history:: Adult Immunizations up to date. - Infectious Disease History:: Denies. - Social history:: Smoking status: Patient denies any tobacco usage or history of. Screenin:21 [facility] ED Fall Risk Assessment (Adult) History of falling in the last 3 months, db including since admission No falls in past 3 months (0 pts) Confusion or Disorientation No (0 pts) Intoxicated or Sedated No (0 pts) Impaired Gait Yes (1 pt) Mobility Assist Device Used Yes (1 pt) Altered Elimination No (0 pt) Score/Fall Risk Level 0 - 2 = Low Risk Oriented to surroundings, Maintained a safe environment. Abuse screen: Denies threats or abuse. Denies injuries from another. Nutritional screening: No deficits noted. Tuberculosis screening: No symptoms or risk factors identified. Assessment: 18:05 Reassessment: Patient appears in no apparent distress at this time. Patient and/or db family updated on plan of care and expected duration. Pain level reassessed. Patient is alert, oriented x 3, equal unlabored respirations, skin warm/dry/pink. General: Appears in no apparent distress. comfortable, Behavior is calm, cooperative. Pain: Denies pain. Neuro: Level of Consciousness is awake, alert, obeys commands, Oriented to person, place, time, situation. Respiratory: Airway is patent Respiratory effort is even, unlabored, Respiratory pattern is regular, symmetrical. 19:10 General: Appears in no apparent distress. comfortable, Behavior is calm, cooperative, rg5 appropriate for age. 19:10 Neuro: Level of Consciousness is awake, alert, obeys commands, Oriented to person, rg5 place, time, situation. Respiratory: Airway is patent Trachea midline Respiratory effort is even, unlabored, Respiratory pattern is regular, symmetrical. Vital Signs: 17:25 BP 156 / 58; Pulse 80; Resp 16; Temp 97.1; Pulse Ox 96% ; Weight 86.64 kg; Height 5 ft. ll1 5 in. ; Pain 0/10; 18:15 BP 161 / 59; Pulse 72; Resp 22; Pulse Ox 98% ; db 19:36 BP 139 / 63; Pulse 71; Resp 18; Pulse Ox 98% ; rg5 17:25 Body Mass Index 31.78 (86.64 kg, 165.1 cm) ll1 17:25 Pain Scale: Adult ll1 ED Course: 17:21 Patient arrived in ED. sj2 17:21 Arm band placed on. ll1 17:22 Moises Guerrero PA is PHCP. cp 17:22 Bernard Ruiz MD is Attending Physician. cp 17:26 Triage completed. ll1 17:32 Patient placed in an exam room, on a stretcher. ll1 17:54 Crissy Sanon, TITO is Primary Nurse. db 18:08 Initial lab(s) drawn, by ok, sent to lab. EKG done, reviewed by Moises WIN. Inserted db saline lock: 20 gauge in right antecubital area, using aseptic technique. Blood collected. Flushed with 10 mL NS. 19:10 Patient has correct armband on for positive identification. rg5 19:10 No provider procedures requiring assistance completed. rg5 20:00 Provided Education on: POST ER CARE. rg5 20:00 IV discontinued, bleeding controlled, No redness/swelling at site. Pressure dressing rg5 applied. Administered Medications: No medications were administered Medication: 18:22 VIS not applicable for this client. db Outcome: 19:36 Discharge ordered by MD. eddie 20:00 Discharged to home ambulatory, rg5 20:00 Condition: stable 20:00 Discharge instructions given to patient, Instructed on discharge instructions, follow up and referral plans. 20:05 Patient left the ED. rg5 Signatures: Moises Guerrero PA PA cp Lewis, Lynsay RN RN ll1 Crissy Sanon RN RN db Dylan Cheung RN RN rg5 David Foote [facility]
--- NOTE | 2025-03-21 19:37 | EDPHYS ---
Physician Documentation [facility] Name: Beth Thrasher Age: 89 yrs Sex: Female : 1935 Arrival Date: 03/21/2025 Time: 17:18 Bed 13 Private MD: ED Physician Bernard Ruiz HPI: 03/21 17:45 This 89 yrs old Black Female presents to ER via Ambulatory with complaints of Abnormal cp Lab Results. 17:45 Patient is an 89-year-old female with past medical history significant for CHF, cp hypertension and rheumatoid arthritis who presents to the emergency department after being contacted by her primary care doctor, Dr. Gonzalez, for elevated potassium. Daughter reports patient was instructed to proceed to the emergency department for evaluation after having blood drawn yesterday that showed her potassium level was elevated. Patient does complain of some increased shortness of breath and reports that her prescribed spironolactone was recently discontinued. Patient denies any increased orthopnea and/or increased swelling of lower extremities. Historical: - Allergies: 17:21 Tramadol HCl; ll1 - PMHx: 17:21 CHF; Chronic pain; Hypertension; Rheumatoid Arthritis; ll1 - Immunization history:: Adult Immunizations up to date. - Infectious Disease History:: Denies. - Social history:: Smoking status: Patient denies any tobacco usage or history of. ROS: 17:50 Constitutional: history per hpi cp 17:50 Constitutional: Negative for body aches, chills, fever, poor PO intake, cp 17:50 Cardiovascular: Positive for edema, Negative for chest pain, palpitations, 17:50 Respiratory: Negative for cough, wheezing, worsening sob, 17:50 Abdomen/GI: Negative for abdominal pain, vomiting, diarrhea, constipation, 17:50 Skin: Negative for rash, 17:50 Neuro: Negative for altered mental status, dizziness, headache, weakness, 17:50 All other systems are negative, Exam: 17:55 Constitutional: The patient appears in no acute distress, alert, awake, comfortable, cp non-diaphoretic, non-toxic, well developed, well nourished, 17:55 Head/Face: Normocephalic, atraumatic. cp 17:55 Eyes: Periorbital structures: appear normal, Conjunctiva: normal, no exudate, no injection, Sclera: no appreciated abnormality, Lids and lashes: appear normal, bilaterally, 17:55 ENT: External ear(s): are unremarkable, Nose: is normal, Mouth: Lips: moist, Oral mucosa: moist, Posterior pharynx: Airway: no evidence of obstruction, patent, 17:55 Chest/axilla: Inspection: normal, 17:55 Cardiovascular: Rate: normal, Rhythm: regular, Edema: pedal edema, that is mild, ankle edema, that is mild, JVD: is not appreciated, 17:55 Respiratory: the patient does not display signs of respiratory distress, Respirations: normal, no use of accessory muscles, no retractions, labored breathing, is not present, Breath sounds: are clear throughout, no decreased breath sounds, no stridor, no wheezing, 17:55 Abdomen/GI: Inspection: abdomen appears normal, Palpation: abdomen is soft and non-tender, in all quadrants, 17:55 Neuro: Orientation: to person, place \T\ time. Mentation: is normal, Motor: moves all fours, strength is normal, Sensation: no obvious gross deficits, 18:13 ECG was reviewed by the Attending Physician. cp Vital Signs: 17:25 BP 156 / 58; Pulse 80; Resp 16; Temp 97.1; Pulse Ox 96% ; Weight 86.64 kg; Height 5 ft. ll1 5 in. ; Pain 0/10; 18:15 BP 161 / 59; Pulse 72; Resp 22; Pulse Ox 98% ; db 19:36 BP 139 / 63; Pulse 71; Resp 18; Pulse Ox 98% ; rg5 17:25 Body Mass Index 31.78 (86.64 kg, 165.1 cm) ll1 17:25 Pain Scale: Adult ll1 MDM: 18:00 Differential diagnosis: electrolyte abnormality, cardiac arrhythmia, chf exacerbation. cp 19:36 Medical Screening Exam initiated cp 19:36 Data reviewed: vital signs, nurses notes, lab test result(s), EKG, and as a result, I cp will discharge patient. 19:36 Independent interpretation of the following test(s) in the Emergency Department EKG: cp See my EKG interpretation above. Care significantly affected by the following chronic conditions: Congestive Heart Failure. Counseling: I had a detailed discussion with the patient and/or guardian regarding the historical points, exam findings, and any diagnostic results supporting the discharge/admit diagnosis, lab results, to return to the emergency department if symptoms worsen or persist or if there are any questions or concerns that arise at home. 03/21 17:47 Order name: Basic Metabolic Panel; Complete Time: 18:49 cp 03/21 18:49 Interpretation: Normal except: CO2 34; BUN 20; CRE 1.17; GFR 45. cp 03/21 17:47 Order name: CBC with Diff; Complete Time: 18:49 cp 03/21 18:50 Interpretation: Normal except: HGB 11.8; HCT 35.6. cp 03/21 17:47 Order name: LFT's; Complete Time: 18:49 cp 03/21 17:47 Order name: Magnesium; Complete Time: 18:49 cp 03/21 17:47 Order name: PT-INR; Complete Time: 18:49 cp 03/21 17:47 Order name: EKG; Complete Time: 17:48 cp 03/21 17:47 Order name: Cardiac monitoring; Complete Time: 18:17 cp 03/21 17:47 Order name: EKG - Nurse/Tech; Complete Time: 18:17 cp 03/21 17:47 Order name: IV Saline Lock; Complete Time: 18:17 cp 03/21 17:47 Order name: Labs collected and sent; Complete Time: 18:18 cp 03/21 17:47 Order name: O2 Per Protocol; Complete Time: 18:18 cp 03/21 17:47 Order name: O2 Sat Monitoring; Complete Time: 18:18 cp EC:13 Rate is 70 beats/min. Rhythm is regular. SD interval is normal. QRS interval is cp prolonged at 138 msec. QT interval is normal. T waves are Inverted in leads I, aVL, V6. Interpreted by me. Reviewed by me. Administered Medications: No medications were administered Disposition Summary: 03/21/25 19:36 Discharge Ordered Notes: Location: Home cp Problem: new cp Symptoms: have improved cp Condition: Stable cp Diagnosis - Encounter for screening, unspecified cp Followup: cp - With: Private Physician - When: As needed - Reason: Worsening of condition Discharge Instructions: - Discharge Summary Sheet cp - Potassium Test cp Forms: - Medication Reconciliation Form cp - Antibiotic Education cp - Prescription Opioid Use cp - Patient Portal Instructions cp - Leadership Thank You Letter cp Signatures: [facility] Moises Guerrero PA PA cp Gaurav Araya RN RN ll1 Crissy Sanon, RN RN db
[2025-03-21 20:19] VITALS: TEMP 97.1
[2025-03-21 20:21] VITALS: O2SAT 98
[2025-03-21 20:22] VITALS: BP 139/63
== END 2025-03-21 20:05 | disposition home or self-care (01) ==
LOC: ER 17:18
DX: Z71.1 Person with feared health complaint in whom no diagnosis is made (principal); R60.9 Edema, unspecified; I10 Essential (primary) hypertension; I50.9 Heart failure, unspecified
CPT/HCPCS: 36415; 80048; 80076; 83735; 85025; 85610; 93005; 99284